=== PATIENT | female | born 1990 | race Caucasian/White ===

== ENCOUNTER 2023-06-14 12:59 | Emergency (ER) | payer OTHER ==
[~2023-06-14] VITALS: Ht 175.3 cm; Wt 68.0 kg
[2023-06-14] MEDS ORDERED: BACTRIM DS1 TAB PO (13:08)
[2023-06-14] MEDS ORDERED: OMNI-PAC300 MG PO (13:08)
[2023-06-14 13:32] VITALS: BP 109/73
== END 2023-06-14 13:35 | disposition home or self-care (01) | DRG 603 ==
LOC: ED 12:59
DX: L02.31 Cutaneous abscess of buttock (principal)